=== PATIENT | male | born 1985 | race Caucasian/White ===

== ENCOUNTER 2016-11-04 07:29 | Emergency (ER) | payer OTHER ==
[~2016-11-04] VITALS: Ht 175.3 cm; Wt 78.0 kg
[~2016-11-04 07:29] MED LIST: ASPI-110 PO; LISI-363 PO; NOVOLOGMXP SQ; NOVORP2 SQ
[2016-11-04 07:30] VITALS: BP 130/86; PULSE 95; RESP 16; TEMP 98.3; O2SAT 100
[2016-11-04] MEDS ORDERED: SODIUM CHLOR 0.9% 1000 ML INJ 1,000 ML IV SCH (07:46)
[2016-11-04 07:49] VITALS: RESP 16; O2SAT 100
[2016-11-04] MEDS ORDERED: NOVORP2 SQ (07:53)
[2016-11-04] MEDS ORDERED: NOVOLOGMXP SQ (07:53)
--- NOTE | 2016-11-04 07:54 | PD ---
HPI Chief Complaint: Abdominal Pain Time Seen by Provider: 07:46 Travel History International Travel<30 days: No Contact w/Intl Traveler<30days: No Traveled to known affect area: No History of Present Illness HPI 30-year-old male with history of insulin-dependent type 1 diabetes, presents to the ER today for 1 month history of upper abdominal pains which is intermittent in nature, currently a 6 out of 10, cramping, nausea, vomiting, that sometimes worsens with eating. He denies any fevers, diarrhea, or any other symptoms. He does not have a primary care physician and takes insulin that he buys over- the-counter. Modifying Factors: None Associated Signs & Symptoms: Nausea, vomiting, abdominal pains for one month Risk Factors: Diabetic PFSH Past Medical History Cardiovascular Problems: No Diabetes: Yes (TYPE 1) Patient Takes Glucophage: No Diminished Hearing: No Genitourinary: No Hypertension: Yes Immune Disorder: No Musculoskeletal: No Neurologic: Yes Psychiatric: No Reproductive: No Respiratory: No Migraines: Yes Tetanus Vaccination: < 5 Years Influenza Vaccination: No Past Surgical History Other Surgery: Yes (states was under for suturing of lip laceration as a child) Social History Alcohol Use: Yes (occas. beer) Tobacco Use: Yes (1 ppd) Substance Use: No (hx of THC use) Allergies-Medications (Allergen,Severity, Reaction): Coded Allergies: No Known Allergies (Verified , 11/04/16) Reported Meds & Prescriptions Reported Meds & Active Scripts Active Reported Novolin R Inj (Insulin Human Regular) 1,000 Unit/10 Ml Vial 0 SQ ACHS SLIDING SCALE Sliding Scale As Directed. Novolog Mix 70-30 Inj (Insulin Aspart Prota 70%/Aspart 30%) 1,000 Unit/10 Ml Vial 20 Units SQ BID Review of Systems Except as stated in HPI: all other systems reviewed are Neg Physical Exam Narrative GENERAL: Well-developed young white male patient currently in mild distress. Awake and oriented 3. SKIN: Focused skin assessment warm/dry. HEAD: Atraumatic. Normocephalic. EYES: Pupils equal and round. No scleral icterus. No injection or drainage. ENT: No nasal bleeding or discharge. Mucous membranes pink and moist. NECK: Trachea midline. No JVD. CARDIOVASCULAR: Regular rate and rhythm. No murmur appreciated. RESPIRATORY: No accessory muscle use. Clear to auscultation. Breath sounds equal bilaterally. GASTROINTESTINAL: Abdomen soft, mild diffuse upper abdominal tenderness without guarding or rebound, nondistended. Hepatic and splenic margins not palpable. MUSCULOSKELETAL: No obvious deformities. No clubbing. No cyanosis. No edema. NEUROLOGICAL: Awake and alert. No obvious cranial nerve deficits. Motor grossly within normal limits. Normal speech. PSYCHIATRIC: Appropriate mood and affect; insight and judgment normal. Data Data Last Documented VS Vital Signs Date Time Temp Pulse Resp B/P Pulse Ox O2 Delivery O2 Flow Rate FiO2 11/04/16 09:22 87 16 131/59 99 Room Air 11/04/16 07:30 98.3 Orders Complete Blood Count With Diff (11/04/16 07:46) Comprehensive Metabolic Panel (11/04/16 07:46) Lipase (11/04/16 07:46) Urinalysis - C+S If Indicated (11/04/16 07:46) Ct Abd/Pel W Iv Contrast(Rout) (11/04/16 07:46) Iv Access Insert/Monitor (11/04/16 07:46) Ecg Monitoring (11/04/16 07:46) Oximetry (11/04/16 07:46) Pantoprazole Inj (Protonix Inj) (11/04/16 08:00) Sodium Chlor 0.9% 1000 Ml Inj (Ns 1000 M (11/04/16 07:46) Sodium Chloride 0.9% Flush (Ns Flush) (11/04/16 08:00) Beta Hydroxybutyrate (Acetone) (11/04/16 07:46) Iohexol 350 Inj (Omnipaque 350 Inj) (11/04/16 08:52) Labs Laboratory Tests Test 11/04/16 11/04/16 08:00 08:20 White Blood Count 14.1 TH/MM3 Red Blood Count 5.12 MIL/MM3 Hemoglobin 14.9 GM/DL Hematocrit 45.2 % Mean Corpuscular Volume 88.4 FL Mean Corpuscular Hemoglobin 29.2 PG Mean Corpuscular Hemoglobin 33.0 % Concent Red Cell Distribution Width 11.6 % Platelet Count 190 TH/MM3 Mean Platelet Volume 9.4 FL Neutrophils (%) (Auto) 86.6 % Lymphocytes (%) (Auto) 6.3 % Monocytes (%) (Auto) 4.6 % Eosinophils (%) (Auto) 2.2 % Basophils (%) (Auto) 0.3 % Neutrophils # (Auto) 12.3 TH/MM3 Lymphocytes # (Auto) 0.9 TH/MM3 Monocytes # (Auto) 0.6 TH/MM3 Eosinophils # (Auto) 0.3 TH/MM3 Basophils # (Auto) 0.0 TH/MM3 CBC Comment DIFF FINAL Differential Comment Sodium Level 140 MEQ/L Potassium Level 4.1 MEQ/L Chloride Level 106 MEQ/L Carbon Dioxide Level 27.3 MEQ/L Anion Gap 7 MEQ/L Blood Urea Nitrogen 12 MG/DL Creatinine 1.10 MG/DL Estimat Glomerular Filtration 79 ML/MIN Rate Random Glucose 169 MG/DL Calcium Level 8.5 MG/DL Total Bilirubin 0.7 MG/DL Aspartate Amino Transf 8 U/L (AST/SGOT) Alanine Aminotransferase 21 U/L (ALT/SGPT) Alkaline Phosphatase 66 U/L Total Protein 6.5 GM/DL Albumin 3.7 GM/DL Lipase 127 U/L B-Hydroxybutyrate 0.09 MMOL/L Urine Collection Type CLEAN CATCH Urine Color YELLOW Urine Turbidity CLEAR Urine pH 6.0 Urine Specific [place] 1.018 Urine Protein NEG mg/dL Urine Glucose (UA) 1000 OR GREATER mg/dL Urine Ketones NEG mg/dL Urine Occult Blood NEG Urine Nitrite NEG Urine Bilirubin NEG Urine Leukocyte Esterase NEG Urine RBC 0-3 /hpf Urine Squamous Epithelial 0-5 /hpf Cells Microscopic Urinalysis Comment CULT NOT INDICATED Urine Collection Time 08:20 [facility] Medical Decision Making Medical Screen Exam Complete: Yes Emergency Medical Condition: Yes Medical Record Reviewed: Yes Interpretation(s) Laboratory Tests Test 11/04/16 11/04/16 08:00 08:20 White Blood Count 14.1 TH/MM3 (4.0-11.0) Neutrophils (%) (Auto) 86.6 % (16.0-70.0) Lymphocytes (%) (Auto) 6.3 % (9.0-44.0) Neutrophils # (Auto) 12.3 TH/MM3 (1.8-7.7) Lymphocytes # (Auto) 0.9 TH/MM3 (1.0-4.8) Estimat Glomerular Filtration 79 ML/MIN (>89) Rate Random Glucose 169 MG/DL (74-106) Aspartate Amino Transf 8 U/L (15-37) (AST/SGOT) Urine Glucose (UA) 1000 OR GREATER mg/dL (NEG) Last 24 hours Impressions Abdomen/Pelvis CT 11/04/16 0746 Signed Impressions: Service Date/Time: October 08:37 - CONCLUSION: Negative CT abdomen/pelvis with contrast. Rakan Rudolph MD Differential Diagnosis Nausea, vomiting, abdominal painsDKA versus gastritis versus gastroenteritis versus pancreatitis versus other acute intra-abdominal processes versus dehydration versus metabolic issues versus gastroparesis Narrative Course Labwork shows some slight leukocytosis. CAT scan did not show any signs of acute processes. Lab work did not show significant metabolic issues and urine did not show UTI. At this point, my plan would be to release the patient with follow-up to primary care physician. Return for new issues as needed. The plan has been discussed with him and he states understanding. Diagnosis Primary Impression: Abdominal pain Med/Other Pt SpecificInfo: Prescription(s) given Scripts Promethazine (Phenergan)25 Mg [id number] Mg PO Q6H PRN (NAUSEA OR VOMITING) #10 TAB Ref 0 Prov:Marisa Mccain MD 11/04/16 Famotidine (Pepcid)20 Mg Tab20 Mg PO BID #20 TAB Ref 0 Prov:Marisa Mccain MD 11/04/16 Disposition: 01 DISCHARGE HOME Condition: Stable Marisa Mccain MD Nov 04, 2016 07:54
[2016-11-04] MEDS ORDERED: PANTOPRAZOLE SODIUM 40 MG VIAL IVP ONE (08:00)
[2016-11-04] MEDS ORDERED: SODIUM CHLORIDE 0.9% FLUSH 10 ML FLUSH IV FLUSH PRN (08:00)
[2016-11-04 08:19] LABS: CHLORIDE 106 MEQ/L (98-107); POTASSIUM 4.1 MEQ/L (3.5-5.1); SODIUM (NA) 140 MEQ/L (136-145)
[2016-11-04 08:21] LABS: AUTOMATED NEUTROPHIL # 12.3 TH/MM3 (1.8-7.7); BASOPHIL % 0.3 % (0.0-2.0); EOSINOPHIL # 0.3 TH/MM3 (0-0.4); EOSINOPHIL % 2.2 % (0.0-4.0); HEMATOCRIT 45.2 % (39.0-51.0); LYMPH % 6.3 % (9.0-44.0); LYMPHOCYTE # 0.9 TH/MM3 (1.0-4.8); MEAN CELL VOLUME 88.4 FL (80.0-100.0); MEAN CORPUSCULAR HEMOGLOBIN 29.2 PG (27.0-34.0); MONO % 4.6 % (0.0-8.0); NEUT % 86.6 % (16.0-70.0); PLATELET COUNT 190 TH/MM3 (150-450); RED BLOOD COUNT 5.12 MIL/MM3 (4.50-5.90); RED CELL DISTRIBUTION WIDTH 11.6 % (11.6-17.2); WHITE BLOOD COUNT 14.1 TH/MM3 (4.0-11.0)
[2016-11-04 08:24] LABS: ANION GAP 7 MEQ/L (5-15); BICARBONATE 27.3 MEQ/L (21.0-32.0); BLOOD UREA NITROGEN 12 MG/DL (7-18); HEMO FLAGS DIFF FINAL
[2016-11-04 08:25] LABS: BLOOD, URINE NEG (NEG); KETONE, URINE NEG (NEG); NITRITE,URINE NEG (NEG)
[2016-11-04 08:26] LABS: ALT (GPT) 21 U/L (12-78); AST (GOT) 8 U/L (15-37)
[2016-11-04 08:27] LABS: BETA-HYDROXYBUTYRATE 0.09 MMOL/L (0.00-0.39); GLOMERULAR FILTRATION RATE 79 ML/MIN (>89)
[2016-11-04 08:27] LABS: GLUCOSE,URINE 1000 OR GREATER mg/dL (NEG)
[2016-11-04 08:28] LABS: TOTAL BILIRUBIN ADULT 0.7 MG/DL (0.2-1.0)
[2016-11-04 08:28] LABS: METHOD OF COLLECTION CLEAN CATCH; URINE COLOR YELLOW (YELLW/STRAW)
[2016-11-04 08:29] LABS: COMMENT (UR) CULT NOT INDICATED; CULTURE IF INDICATED CULT NOT INDICATED; RBC, URINE 0-3 /hpf (0-3); SQUAMOUS EPITHELIAL CELL URINE 0-5 /hpf (0-5)
[2016-11-04 08:29] LABS: ALKALINE PHOSPHATASE 66 U/L (45-117)
[2016-11-04] MEDS ORDERED: IOHEXOL 350 MG/ML 10 ML VIAL (for RAD DIAG) IV ONE (08:52)
[2016-11-04 09:22] VITALS: BP 131/59; PULSE 87; RESP 16; O2SAT 99
--- NOTE | 2016-11-04 09:27 | RADHPO ---
EXAM DATE/TIME: 11/04/2016 08:37 [facility] COMPARISON: No previous studies available for comparison. INDICATIONS : Upper abdominal pain x 1 month. Intermittent nausea and vomiting. IV CONTRAST: 85 cc Omnipaque 350 (iohexol) IV ORAL CONTRAST: No oral contrast ingested. RADIATION DOSE: 7.52 CTDIvol (mGy) MEDICAL HISTORY : Hypertension. SURGICAL HISTORY : None. ENCOUNTER: Initial ACUITY: 1 month PAIN SCALE: 7/10 LOCATION: Left upper quadrant TECHNIQUE: Volumetric scanning of the abdomen and pelvis was performed. Using automated exposure control and ad justment of the mA and/or kV according to patient size, radiation dose was kept as low as reasonably achievable to obtain optimal diagnostic quality images. FINDINGS: LOWER LUNGS: The visualized lower lungs are clear. LIVER: Homogeneous density without lesion. There is no dilation of the biliary tree. No calcified gallston es. SPLEEN: Normal size without lesion. PANCREAS: Within normal limits. KIDNEYS: Normal in size and shape. There is no mass, stone or hydronephrosis. ADRENAL GLANDS: Within normal limits. VASCULAR: There is no aortic aneurysm. BOWEL/MESENTERY: The stomach, small bowel, and colon demonstrate no acute abnormality. There is no free intraperitone al air or fluid. ABDOMINAL WALL: Within normal limits. RETROPERITONEUM: There is no lymphadenopathy. BLADDER: No wall thickening or mass. REPRODUCTIVE: Within normal limits. INGUINAL: There is no lymphadenopathy or hernia. MUSCULOSKELETAL: Within normal limits for patient age. CONCLUSION: Negative CT abdomen/pelvis with contrast. Rakan Rudolph MD on November 04, 2016 at 9:23 Board Certified Radiologist. This report was verified electronically.
[2016-11-04] MEDS ORDERED: PROM25TA10 PO (09:37)
[2016-11-04] MEDS ORDERED: FAMO1TAB37 PO (09:37)
== END 2016-11-04 09:58 | disposition home or self-care (01) ==
LOC: PHED 07:29
DX: R10.10 Upper abdominal pain, unspecified (principal); I10 Essential (primary) hypertension; F17.210 Nicotine dependence, cigarettes, uncomplicated; E11.9 Type 2 diabetes mellitus without complications; Z79.4 Long term (current) use of insulin
CPT/HCPCS: 74177; 80053; 81001; 82010; 83690; 85025; 96361; 96374; 99285; C9113; J7030; Q9967